=== PATIENT | female | born 2000 | race Caucasian/White ===

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

== ENCOUNTER 2021-02-05 22:47 | Emergency (ER) | payer OTHER, BC ==
[~2021-02-05] VITALS: Ht 170.2 cm; Wt 81.8 kg
[~2021-02-05 22:47] MED LIST changes: +CLIN300C12 PO; +TMSL.4C PO
[2021-02-05 23:11] LABS: BASOPHILS # (AUTO) 0.1 10^3/uL (0.0-0.1); BASOPHILS % (AUTO) 1 % (0-10); EOSINOPHILS % (AUTO) 0 % (0-10); HEMATOCRIT 38 % (35-52); HEMOGLOBIN 12.5 g/dL (11.5-16.0); LYMPHOCYTES # (AUTO) 3.3 10^3/uL (1.0-4.0); LYMPHOCYTES % (AUTO) 25 % (12-44); MEAN CORPUSCULAR HEMOGLOBIN 27 pg (25-34); MEAN CORPUSCULAR HGB CONC 33 g/dL (32-36); MEAN CORPUSCULAR VOLUME 84 fL (80-99); MEAN PLATELET VOLUME 10.5 fL (9.0-12.2); MONOCYTES # (AUTO) 0.8 10^3/uL (0.0-1.0); MONOCYTES % (AUTO) 6 % (0-12); NEUTROPHILS # (AUTO) 8.7 10^3/uL (1.8-7.8); NEUTROPHILS % (AUTO) 68 % (42-75); PLATELET COUNT 351 10^3/uL (130-400); WHITE BLOOD COUNT 12.9 10^3/uL (4.3-11.0)
[2021-02-05 23:27] LABS: CHLORIDE 109 MMOL/L (98-107); POTASSIUM 3.7 MMOL/L (3.6-5.0); SODIUM 138 MMOL/L (135-145)
[2021-02-05 23:28] LABS: ALBUMIN 4.5 GM/DL (3.2-4.5)
[2021-02-05 23:29] LABS: CALCIUM 9.5 MG/DL (8.5-10.1)
[2021-02-05 23:30] LABS: GLUCOSE 90 MG/DL (70-105); INR 0.9 (0.8-1.4); PROTHROMBIN TIME PATIENT 12.8 SEC (12.2-14.7); TOTAL PROTEIN 7.5 GM/DL (6.4-8.2)
[2021-02-05 23:31] LABS: CARBON DIOXIDE 17 MMOL/L (21-32)
[2021-02-05 23:32] LABS: BILIRUBIN,TOTAL 0.3 MG/DL (0.1-1.0)
[2021-02-05 23:34] LABS: ALKALINE PHOSPHATASE 57 U/L (40-136); CREATININE SERUM 0.86 MG/DL (0.60-1.30); GFR ESTIMATED > 60
[2021-02-05 23:35] LABS: BUN/CREATININE RATIO 10
[2021-02-05 23:36] LABS: SALICYLATE < 5.0 MG/DL (5.0-20.0)
[2021-02-05 23:37] LABS: ALANINE AMINOTRANSFERASE 11 U/L (0-55)
[2021-02-05 23:41] LABS: ACETAMINOPHEN < 10 UG/ML (10-30)
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
[2021-02-06 01:18] LABS: BILIRUBIN,URINE NEGATIVE (NEGATIVE); CLARITY,URINE CLEAR; COLOR,URINE YELLOW; GLUCOSE, URINE (UA) NEGATIVE (NEGATIVE); KETONES,URINE TRACE (NEGATIVE); LEUKOCYTE ESTERASE ,URINE NEGATIVE (NEGATIVE); NITRITE,URINE NEGATIVE (NEGATIVE); PROTEIN,URINE NEGATIVE (NEGATIVE)
[2021-02-06 01:34] LABS: AMORPHOUS SEDIMENT,UR FEW AMOR URATES /LPF; BACTERIA,URINE TRACE /HPF; WBC,URINE 0-2 /HPF
[2021-02-06 01:35] LABS: AMPHETAMINE SCREEN, URINE NEGATIVE (NEGATIVE); BARBITURATE SCREEN URINE NEGATIVE (NEGATIVE); BENZODIAZEPINES SCREEN URINE NEGATIVE (NEGATIVE); CANNABINOID SCREEN, URINE NEGATIVE (NEGATIVE); COCAINE SCREEN URINE NEGATIVE (NEGATIVE); METHADONE STAT NEGATIVE (NEGATIVE); METHAMPHETAMINE SCREEN URINE S NEGATIVE (NEGATIVE); OPIATE SCREEN URINE NEGATIVE (NEGATIVE); OXYCODONE STAT NEGATIVE (NEGATIVE); PROPOXYPHENE STAT NEGATIVE (NEGATIVE); TRICYCLIC ANTIDEPRESSANTS SCRE NEGATIVE (NEGATIVE)
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
== END 2021-02-06 01:05 | disposition home or self-care (01) ==
LOC: EDUNIT# 22:47 → ER 22:48
DX: S46.911A Strain of unspecified muscle, fascia and tendon at shoulder and upper arm level, right arm, initial encounter (principal); S16.1XXA Strain of muscle, fascia and tendon at neck level, initial encounter; F17.290 Nicotine dependence, other tobacco product, uncomplicated; V89.2XXA Person injured in unspecified motor-vehicle accident, traffic, initial encounter
CPT/HCPCS: 70450; 71045; 72125; 72128; 72131; 72170; 73060; 73080; 73090; 80053; 80306; 81000; 84703; 85025; 85610; 85730; 93005; 93041; 99284; G0480 ×3; 36415; 80320; 80329

== ENCOUNTER 2021-09-06 01:51 | Emergency (ER) | payer BC, OTHER ==
[~2021-09-06 01:51] MED LIST changes: +CLIN-144 PO; -CLIN300C12 PO
[2021-09-06] MEDS ORDERED: TETANUS,DIPTH,PERTUSS P/F (BOOSTRIX) 0.5 ML VIAL IM ONE (03:00)
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
[2021-09-06] MEDS ORDERED: L.E.T. SOLUTION 3 ML SYR TOP ONE (04:00)
[2021-09-06] MEDS ORDERED: LIDOCAINE 1% INJ 20 ML 20 ML VIAL ONE (04:26)
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
[2021-09-06 05:06] VITALS: BP 122/78
== END 2021-09-06 05:14 | disposition home or self-care (01) ==
LOC: EDUNIT# 01:51 → ER 01:56
DX: S01.81XA Laceration without foreign body of other part of head, initial encounter (principal); S13.9XXA Sprain of joints and ligaments of unspecified parts of neck, initial encounter; S09.90XA Unspecified injury of head, initial encounter; Z23 Encounter for immunization; W10.8XXA Fall (on) (from) other stairs and steps, initial encounter
CPT/HCPCS: 12052; 70450; 70486; 72125; 90715

== ENCOUNTER → 2022-10-14 | Outpatient (CLI) | payer BC | LOC: CARD 09:21 | PROVIDERS: ATTEND Nurse Practitioner Family | DX: R07.89 Other chest pain (principal); R00.2 Palpitations | CPT/HCPCS: 93242 ==

== ENCOUNTER → 2023-06-02 | Outpatient (CLI) | payer BC ==
[~2023-06-02] VITALS: Ht 172.7 cm; Wt 75.0 kg
[2023-06-02] VITALS (27 sets, daily range): BP systolic 62–119; BP diastolic 30–84
[~2023-06-02] MED LIST changes: +ATROPINE 1 MG/10 ML EMERGENCY SYRINGE ONE; +NS IV 1000 ML 1,000 ML IV SCH; +NS IV 1000 ML 1,000 ML ONE
--- NOTE | 2023-06-02 13:50 | Cardiology Tilt Table Test ---
Cardiology-Tilt Table Test Tilt Table Test Date 06/02/23 Baseline Vitals Vital Signs Date Time Temp Pulse Resp B/P (MAP) Pulse Ox O2 Delivery O2 Flow Rate FiO2 06/02/23 12:02 36.5 61 18 110/79 (89) 100 Room Air Vital Signs VS - Last 72 Hours, by Label 06/02/23 06/02/23 06/02/23 06/02/23 12:02 12:10 12:11 12:12 Temp 36.5 Pulse 61 73 84 85 Resp 18 17 B/P (MAP) 110/79 (89) 119/82 (94) 111/83 (92) 114/71 (85) Pulse Ox 100 100 100 100 O2 Delivery Room Air 06/02/23 06/02/23 06/02/23 06/02/23 12:13 12:15 12:16 12:17 Pulse 75 78 87 73 Resp 16 B/P (MAP) 108/84 (92) 107/78 (88) 107/81 (90) 102/74 (83) Pulse Ox 100 100 99 100 06/02/23 06/02/23 06/02/23 06/02/23 12:18 12:19 12:20 12:21 Pulse 84 82 64 B/P (MAP) 99/72 (81) 101/78 (86) 105/68 (80) 96/62 (73) Pulse Ox 100 100 100 06/02/23 06/02/23 06/02/23 06/02/23 12:22 12:23 12:24 12:26 Pulse 66 64 63 121 B/P (MAP) 103/69 (80) 98/60 (73) 98/70 (79) 105/64 (78) Pulse Ox 100 99 06/02/23 06/02/23 06/02/23 06/02/23 12:27 12:28 12:29 12:29 Pulse 99 98 84 B/P (MAP) 110/80 (90) 105/59 (74) 87/42 (57) 06/02/23 06/02/23 06/02/23 06/02/23 12:30 12:31 12:32 12:33 Pulse 60 56 58 57 Resp 13 16 B/P (MAP) 62/30 (41) 94/59 (71) 98/64 (75) 101/60 (74) Pulse Ox 100 100 06/02/23 06/02/23 06/02/23 06/02/23 12:35 12:40 12:45 12:50 Pulse 66 59 66 80 B/P (MAP) 105/66 (79) 102/69 (80) 99/67 (78) 104/65 (78) Pulse Ox 99 Patient was tilted to 75 degrees for [10] minutes, then returned to supine position, given [2] sublingual nitroglycerin tablets, then tilted again to 75 degrees for [15] minutes. During test, patient was: had a syncopal event at minute (5, stage 2. ) In Conclusion;: Vasovagal Syncope with (Vasodepressor Syncope) During stage 2 patient became symptomatic with dizziness and lightheadedness. At minute 5, she had syncopal episode with BP 62/30, HR remained stable at 60, consistent with vasodepressive syncope. Patient was instructed to increase fluid and salt intake. Use ELINOR hose. Will see her for follow up in our office next month. Vasodepressor syncope Episode of severe hypertension on stage II of tilting Instructed on increasing fluid and salt intake and using compression socks This is Libby Adames PA-C, as a scribe for Dr. Larson. LIBBY RAYA Jun 02, 2023 13:50 ARIELA LARSON MD Jun 02, 2023 13:55
== END ==
LOC: CARD 10:28
PROVIDERS: ATTEND Internal Medicine Cardiovascular Disease
DX: R42 Dizziness and giddiness (principal); R00.2 Palpitations; R55 Syncope and collapse
CPT/HCPCS: 93306; 93660